=== PATIENT | male | born 1935 | race Caucasian/White ===

== ENCOUNTER 2020-10-15 17:08 | Inpatient (IN) ==
--- NOTE | 2020-10-15 17:38 | Emergency Department Note ---
History of Present Illness General Chief complaint: Weakness Time Seen by Provider: 10/15/20 17:18 Source: patient and EMS History of Present Illness Provider complaint: Weakness Onset (ago): day(s) Location: head Pain Consistency: + constant Quality: + other (Weakness) Exacerbated By: + none Associated symptoms: no chest pain, no cough, no fever/chills, no headaches, no nausea/vomiting or no shortness of breath This is an 84-year-old male who recently had a stroke on the of this month at [facility] for evaluation for hypotension and generalized weakness. His blood pressure was 89 systolic today. His family felt that he was declining and wanted him evaluated. They thought his aphasia may be worse. He denies any complaints at this time. He states he feels fine. He has no headache, chest pain, shortness of breath, fever, cough or cold symptoms, abdominal pain, diarrhea, vomiting, black or bloody stools or complaint of weakness. 1903: I did speak to the who is at the bedside as well as the patient's son over the telephone. They gave me further history regarding why the patient is here. Apparently the patient suffered a stroke on October 01. He had aphasia and confusion at that time. He was transferred to [facility] where he had an MRI showing MCA lesions. He had a negative echocardiogram and was placed on aspirin. He was discharged home and doing well until about a week ago when he developed confusion and hypotension. He did not have any hypotension today. He was taken back to [facility] where they determined that the patient had a UTI. He was placed on antibiotics and he had significant improvement of his mental state. Today the patient's son was visiting him and felt that the patient was much more confused. He had difficulty communicating what he wanted and could not count to 5. He had difficulty with word finding. He was sent here for further evaluation. Home Medications Medication Instructions Recorded Confirmed Type aspirin 81 mg chewable tablet 81 mg PO DAILY 10/15/20 10/15/20 History atorvastatin 80 mg tablet 80 mg PO HS 10/15/20 10/15/20 History docusate sodium 100 mg capsule 100 mg PO BID 10/15/20 10/15/20 History enoxaparin 30 mg/0.3 mL 30 mg SUBCUT Q12H 10/15/20 10/15/20 History subcutaneous syringe finasteride 5 mg tablet 5 mg PO DAILY 10/15/20 10/15/20 History furosemide 20 mg tablet 20 mg PO 4XWK 10/15/20 10/15/20 History insulin regular human 100 unit/mL 1 sliding scale dose SUBCUT ACHS 10/15/20 10/15/20 History injection solution (Humulin R Regular U-100 Insulin) levofloxacin 500 mg tablet 500 mg PO DAILY 10/15/20 10/15/20 History lisinopril 10 mg tablet 10 mg PO DAILY 10/15/20 10/15/20 History metformin 1,000 mg tablet 1,000 mg PO BIDM 10/15/20 10/15/20 History oxybutynin chloride 5 mg tablet 5 mg PO DAILY 10/15/20 10/15/20 History terazosin 10 mg capsule 10 mg PO HS 10/15/20 10/15/20 History Allergies Allergy/AdvReac Type Severity Reaction Status Date / Time No Known Allergies Allergy Verified 10/15/20 18:08 Past Med/Surg History Medical History CVA (cerebral vascular accident) Dementia Hypertension Social History Smoking Status: Never smoker Feels Safe at Home: Yes Review of Systems See HPI for pertinent positives & negatives. and A total of 10 systems reviewed and were otherwise negative Physical Exam Vital Signs Vital Signs - 24 hr 10/15/20 17:12 10/15/20 17:23 10/15/20 18:21 Temperature 36.7 C Temperature Source Oral Pulse Rate - Lying 96 H Pulse Rate - Sitting 92 H Pulse Rate - Standing 90 Pulse Rate 86 93 H Pulse Rate from SpO2 Sensor 86 Pulse Rhythm Regular Pulse Strength Normal Respiratory Rate 22 17 Respiratory Effort / Characteristics Non-Labored Spontaneous Respiratory Depth Normal Respiratory Pattern Regular Blood Pressure - Lying 141/76 H Blood Pressure - Sitting 140/70 Blood Pressure- Standing 135/69 Blood Pressure 141/76 H 141/76 H Blood Pressure Mean 97 97 Blood Pressure Position Sitting Pulse Oximetry 95 95 Oxygen Delivery Method Room Air Sepsis Recent Fever Within 48 Hours No Sepsis New/Unexplained Change in Mental Status No Sepsis Action Taken by Nursing No Action Required 10/15/20 18:22 10/15/20 19:23 10/15/20 19:50 Temperature Temperature Source Pulse Rate - Lying Pulse Rate - Sitting Pulse Rate - Standing Pulse Rate 93 H 84 Pulse Rate from SpO2 Sensor Pulse Rhythm Pulse Strength Respiratory Rate 15 26 H Respiratory Effort / Characteristics Non-Labored Spontaneous Respiratory Depth Normal Respiratory Pattern Blood Pressure - Lying Blood Pressure - Sitting Blood Pressure- Standing Blood Pressure 106/70 117/66 Blood Pressure Mean 82 83 Blood Pressure Position Pulse Oximetry Oxygen Delivery Method Room Air Sepsis Recent Fever Within 48 Hours Sepsis New/Unexplained Change in Mental Status Sepsis Action Taken by Nursing 10/15/20 20:29 10/15/20 20:59 10/15/20 22:05 Temperature Temperature Source Pulse Rate - Lying Pulse Rate - Sitting Pulse Rate - Standing Pulse Rate 85 86 Pulse Rate from SpO2 Sensor 85 86 Pulse Rhythm Pulse Strength Respiratory Rate 26 H 25 H Respiratory Effort / Characteristics Respiratory Depth Respiratory Pattern Blood Pressure - Lying Blood Pressure - Sitting Blood Pressure- Standing Blood Pressure 113/68 105/72 Blood Pressure Mean 83 83 Blood Pressure Position Pulse Oximetry 95 95 Oxygen Delivery Method Room Air Sepsis Recent Fever Within 48 Hours Sepsis New/Unexplained Change in Mental Status Sepsis Action Taken by Nursing Constitutional: Vital signs reviewed. Hypertensive. Pleasant. Eyes: Pupils are equal round reactive to light. Conjunctiva are noninjected. ENT: Pharynx is clear without erythema or exudate. Mucous membranes are dry. Neck supple without meningeal signs. Respiratory: Clear to auscultation bilaterally. Breath sounds are equal bilaterally. Cardiovascular: Regular rate and rhythm. No rubs or gallops. GI: Soft, nondistended and nontender. Bowel sounds are present. Musculoskeletal: No peripheral edema. No lower extremity tenderness. Integumentary: No cyanosis. or jaundice. Neurologic: The patient is awake and alert. Cranial nerves II-XII are intact. Motor is 5 out of 5 all extremities. Sensation is intact to light touch all extremities. Normal speech. No pronator drift. Psychiatric: Normal affect. Not anxious appearing. Course Administered Medications Discontinued Medications Gadobutrol (Gadobutrol 65ml Vial) 8 ml IV ONCE ONE Stop: 10/15/20 21:27 Last Admin: 10/15/20 21:27 Dose: 8 ml Documented by: [id number] Sodium Chloride (Nss) 500 mls @ 500 mls/hr IV .Q1H ONE Stop: 10/15/20 21:43 Last Admin: 10/15/20 22:08 Dose: 500 mls/hr Documented by: [id number] Critical Care Time Critical Care Time: Yes Total Critical Care Time: 35 I have personally spent approximately 35 minutes of critical care time in the direct management of this patient. This includes bedside care, interpretation of diagnostic studies, and testing, discussion with consultants, patient, and family members, and other required patient management activities. These minutes are in excess of all separately billable procedures. Medical Decision Making Differential Diagnosis Dehydration, metabolic derangement, orthostatic hypotension, infection, UTI, CVA Medical Records Attestation: I reviewed the patient's medical records. I did perform a limited focused review of portions of the patient's old chart on the electronic medical record. The patient has had no recent pertinent visits to this hospital. Home Medications Current Medication List: was personally reviewed by me Laboratory Data Attestation: I reviewed the patient's lab results. Result diagrams: 10/15/20 18:21 10/15/20 18:21 Lab Results 10/15/20 10/15/20 10/15/20 Range/Units 17:17 18:00 18:21 WBC 5.05 (4.8-10.8) K/uL RBC 4.31 L (4.7-6.1) M/uL Hgb 14.0 (14.0-18.0) g/dL Hct 40.0 L (42-52) % MCV 92.8 (80-100) fL MCH 32.5 (25-34) pg MCHC 35.0 (32-36) g/dL RDW Std Deviation 52.9 H (36.4-46.3) fL RDW Coeff of Bernadette 15.5 H (11.5-14.5) % Plt Count 67 L (130-400) K/uL MPV 11.4 H (7.4-10.4) fL Immature Gran % (Auto) 0.2 % Neut % (Auto) 60.0 % Lymph % (Auto) 28.1 % [place] % (Auto) 9.1 % Eos % (Auto) 2.0 % Baso % (Auto) 0.6 % Neut # (Auto) 3.03 (1.4-6.5) K/uL Lymph # (Auto) 1.42 (1.2-3.4) K/uL [place] # (Auto) 0.46 (0.11-0.59) K/uL Eos # (Auto) 0.10 (0-0.5) K/uL Baso # (Auto) 0.03 (0-0.2) K/uL Immature Gran # (Auto) 0.01 (0.00-0.02) K/uL Platelet Estimate Decreased L (Normal) APTT (21.0-31.0) Seconds PTT Ratio Sodium (136-145) mmol/L Potassium (3.5-5.1) mmol/L Chloride (98-107) mmol/L Carbon Dioxide (21-32) mmol/L Anion Gap (3-11) BUN (7-18) mg/dl Creatinine (0.6-1.4) mg/dl Est Cr Clr Drug Dosing ml/min Est GFR ( Amer) ml/min Est GFR (Non-Af Amer) ml/min BUN/Creatinine Ratio (10-20) Glucose (70-99) mg/dl POC Glucose 138 H (70-99) mg/dl Calcium (8.5-10.1) mg/dl Magnesium (1.8-2.4) mg/dl Total Bilirubin (0.2-1) mg/dl AST (15-37) U/L ALT (12-78) U/L Alkaline Phosphatase (45-117) U/L Troponin I (0-0.045) ng/ml Total Protein (6.4-8.2) gm/dl Albumin (3.4-5.0) gm/dl Globulin (2.5-4.0) gm/dl Albumin/Globulin Ratio (0.9-2) TSH (0.300-4.500) uIu/ml Urine Color Yellow Urine Appearance Clear (Clear) Urine pH 5.0 (4.5-7.5) Ur Specific [place] 1.017 (1.000-1.030) Urine Protein Negative (Negative) Urine Glucose (UA) Negative (Negative) Urine Ketones Negative (Negative) Urine Blood Negative (Negative) Urine Nitrite Negative (Negative) Urine Bilirubin Negative (Negative) Urine Urobilinogen Negative (Negative) Ur Leukocyte Esterase Trace H (Negative) Urine WBC (Auto) 1-5 (0-5) /hpf Urine RBC (Auto) 0-4 (0-4) /hpf U Hyaline Cast (Auto) 1-5 (0-5) /lpf U Epithel Cells (Auto) 5-10 H (0-5) /lpf Urine Bacteria (Auto) Negative (Negative) COVID-19 Eval Order SARS-CoV-2 (PCR) (Negative) 10/15/20 10/15/20 10/15/20 Range/Units 18:21 19:53 19:53 WBC (4.8-10.8) K/uL RBC (4.7-6.1) M/uL Hgb (14.0-18.0) g/dL Hct (42-52) % MCV (80-100) fL MCH (25-34) pg MCHC (32-36) g/dL RDW Std Deviation (36.4-46.3) fL RDW Coeff of Bernadette (11.5-14.5) % Plt Count (130-400) K/uL MPV (7.4-10.4) fL Immature Gran % (Auto) % Neut % (Auto) % Lymph % (Auto) % [place] % (Auto) % Eos % (Auto) % Baso % (Auto) % Neut # (Auto) (1.4-6.5) K/uL Lymph # (Auto) (1.2-3.4) K/uL [place] # (Auto) (0.11-0.59) K/uL Eos # (Auto) (0-0.5) K/uL Baso # (Auto) (0-0.2) K/uL Immature Gran # (Auto) (0.00-0.02) K/uL Platelet Estimate (Normal) APTT (21.0-31.0) Seconds PTT Ratio Sodium 135 L (136-145) mmol/L Potassium 4.6 (3.5-5.1) mmol/L Chloride 104 (98-107) mmol/L Carbon Dioxide 25 (21-32) mmol/L Anion Gap 6.0 (3-11) BUN 21 H (7-18) mg/dl Creatinine 1.12 (0.6-1.4) mg/dl Est Cr Clr Drug Dosing 50.0 ml/min Est GFR ( Amer) 70.0 ml/min Est GFR (Non-Af Amer) 60.4 ml/min BUN/Creatinine Ratio 19.0 (10-20) Glucose 118 H (70-99) mg/dl POC Glucose (70-99) mg/dl Calcium 8.9 (8.5-10.1) mg/dl Magnesium 1.8 (1.8-2.4) mg/dl Total Bilirubin 0.8 (0.2-1) mg/dl AST 38 H (15-37) U/L ALT 45 (12-78) U/L Alkaline Phosphatase 161 H (45-117) U/L Troponin I < 0.015 (0-0.045) ng/ml Total Protein 6.8 (6.4-8.2) gm/dl Albumin 3.0 L (3.4-5.0) gm/dl Globulin 3.8 (2.5-4.0) gm/dl Albumin/Globulin Ratio 0.8 L (0.9-2) TSH 2.960 (0.300-4.500) uIu/ml Urine Color Urine Appearance (Clear) Urine pH (4.5-7.5) Ur Specific [place] (1.000-1.030) Urine Protein (Negative) Urine Glucose (UA) (Negative) Urine Ketones (Negative) Urine Blood (Negative) Urine Nitrite (Negative) Urine Bilirubin (Negative) Urine Urobilinogen (Negative) Ur Leukocyte Esterase (Negative) Urine WBC (Auto) (0-5) /hpf Urine RBC (Auto) (0-4) /hpf U Hyaline Cast (Auto) (0-5) /lpf U Epithel Cells (Auto) (0-5) /lpf Urine Bacteria (Auto) (Negative) COVID-19 Eval Order Covid19 at [facility] SARS-CoV-2 (PCR) NEGATIVE (Negative) 10/15/20 Range/Units 21:40 WBC (4.8-10.8) K/uL RBC (4.7-6.1) M/uL Hgb (14.0-18.0) g/dL Hct (42-52) % MCV (80-100) fL MCH (25-34) pg MCHC (32-36) g/dL RDW Std Deviation (36.4-46.3) fL RDW Coeff of Bernadette (11.5-14.5) % Plt Count (130-400) K/uL MPV (7.4-10.4) fL Immature Gran % (Auto) % Neut % (Auto) % Lymph % (Auto) % [place] % (Auto) % Eos % (Auto) % Baso % (Auto) % Neut # (Auto) (1.4-6.5) K/uL Lymph # (Auto) (1.2-3.4) K/uL [place] # (Auto) (0.11-0.59) K/uL Eos # (Auto) (0-0.5) K/uL Baso # (Auto) (0-0.2) K/uL Immature Gran # (Auto) (0.00-0.02) K/uL Platelet Estimate (Normal) APTT 31.9 H (21.0-31.0) Seconds PTT Ratio 1.2 Sodium (136-145) mmol/L Potassium (3.5-5.1) mmol/L Chloride (98-107) mmol/L Carbon Dioxide (21-32) mmol/L Anion Gap (3-11) BUN (7-18) mg/dl Creatinine (0.6-1.4) mg/dl Est Cr Clr Drug Dosing ml/min Est GFR ( Amer) ml/min Est GFR (Non-Af Amer) ml/min BUN/Creatinine Ratio (10-20) Glucose (70-99) mg/dl POC Glucose (70-99) mg/dl Calcium (8.5-10.1) mg/dl Magnesium (1.8-2.4) mg/dl Total Bilirubin (0.2-1) mg/dl AST (15-37) U/L ALT (12-78) U/L Alkaline Phosphatase (45-117) U/L Troponin I (0-0.045) ng/ml Total Protein (6.4-8.2) gm/dl Albumin (3.4-5.0) gm/dl Globulin (2.5-4.0) gm/dl Albumin/Globulin Ratio (0.9-2) TSH (0.300-4.500) uIu/ml Urine Color Urine Appearance (Clear) Urine pH (4.5-7.5) Ur Specific [place] (1.000-1.030) Urine Protein (Negative) Urine Glucose (UA) (Negative) Urine Ketones (Negative) Urine Blood (Negative) Urine Nitrite (Negative) Urine Bilirubin (Negative) Urine Urobilinogen (Negative) Ur Leukocyte Esterase (Negative) Urine WBC (Auto) (0-5) /hpf Urine RBC (Auto) (0-4) /hpf U Hyaline Cast (Auto) (0-5) /lpf U Epithel Cells (Auto) (0-5) /lpf Urine Bacteria (Auto) (Negative) COVID-19 Eval Order SARS-CoV-2 (PCR) (Negative) Imaging Data Radiologist's Impression: Chest X-Ray 10/15/20 17:33 SINGLE VIEW CHEST CLINICAL HISTORY: Generalized weakness. FINDINGS: An AP, portable, upright chest radiograph is obtained. No prior studies are available for comparison at the time of dictation. The examination is degraded by portable technique and patient rotation. The heart is top normal for projection noting atherosclerotic calcification of the thoracic aorta. The pulmonary vasculature is noncongested. There is bibasilar scarring/atelectasis. No airspace consolidation or large pleural effusion is identified. No pneumothorax is seen. The skeletal structures are osteopenic. The bony thorax is grossly intact. Degenerative changes noted in the shoulders and thoracic spine. There is widening at the right AC joint. IMPRESSION: No acute cardiopulmonary abnormality. ACT 112: Negative or not required by law. Electronically signed by: Artis Lugo M.D. 10/15/2020 6:[address] 10/15/20 17:33 CT SCAN OF THE BRAIN WITHOUT IV CONTRAST CLINICAL HISTORY: Change in mental status. COMPARISON STUDY: No priors. TECHNIQUE: Unenhanced axial CT scan of the brain is performed from the vertex to the skull base. A dose lowering technique was utilized adhering to the principles of ALARA. CT DOSE: 614.27 mGy.cm FINDINGS: Brain parenchyma: There are age-related involutional changes noting mild to moderate subcortical and periventricular microangiopathic change. There is no hemorrhage, mass effect, or evidence of acute territorial ischemia by CT criteria. There is a chronic lacunar infarct in the left samuels radiata. Hilliard- white matter differentiation is preserved. No extra-axial fluid collection is seen. Ventricles, sulci, cisterns: Prominent secondary to involutional change. Intracranial vasculature: There is atherosclerotic calcification of the cavernous carotid and vertebral arteries. Calvarium: Unremarkable. Sinuses and mastoids: There is a 1.5 cm retention cyst in the left maxillary antrum. The remaining paranasal sinuses are clear. There is a small right mastoid effusion. The left mastoid air cells are well pneumatized. Orbits: The bony orbits are grossly intact. IMPRESSION: There is no hemorrhage, mass effect, or evidence of acute territorial ischemia by CT criteria. ACT 112: Negative or not required by law. Electronically signed by: Artis Lugo M.D. 10/15/2020 7:15 PM Brain MRI 10/15/20 19:29 MRI OF THE BRAIN COMBO CLINICAL HISTORY: Aphasia. Change in mental status. COMPARISON STUDY: CT of the brain dated 10/15/2020. TECHNIQUE: MRI of the brain was performed utilizing various T1 and T2-weighted sequences in the axial, sagittal, and coronal planes. Contrast-enhanced sequences were acquired following the administration of 8 cc of Gadavist. FINDINGS: Brain parenchyma: There is age-related involutional change noting moderate subcortical and periventricular microangiopathic disease. There is no hemorrhage or mass effect. Chronic lacunar infarcts are identified in the olivia and the left samuels radiata. There is a 1.4 cm focus of restricted diffusion identified in the left posterior periventricular white matter adjacent the occipital horn of the lateral ventricle. Additional punctate focus of restricted diffusion is suggested in the right occipital cortex on image #13. These are consistent with foci of acute to subacute ischemia. No additional foci of restricted diffusion are identified. No enhancing mass lesion is identified on the postcontrast images. No extra-axial fluid collection is seen. The cerebellar tonsils are normal in configuration. Ventricles, sulci, and cisterns: Prominent secondary to involutional change. Pituitary and sella: Partially empty sella is incidentally noted. Intracranial vasculature: Normal flow voids are maintained at the skull base. Orbits: The bony orbits are grossly intact. Orbital contents are normal in appearance. Sinuses and mastoids: A 1.6 cm retention cyst is noted in the left maxillary antrum. The remaining paranasal sinuses are clear. There is a right mastoid effusion. Calvarium: Unremarkable. Cervical cord: Partially visualized cervical spinal cord is normal in morphology and signal intensity. IMPRESSION: 1. There is an acute to subacute lacunar infarct identified in the left posterior periventricular white matter as above. 2. An additional punctate focus of acute to subacute ischemia is suspect in the right occipital cortex. Bilateral infarcts suggest an embolic process. 3. No additional foci of acute ischemia are identified. 4. There is no hemorrhage, mass effect, or enhancing lesion identified. ACT 112: Negative or not required by law. Electronically signed by: Artis Lugo M.D. 10/15/2020 9:56 PM ECG Data Indication: + other (Low blood pressure) Rate (beats per minute): 87 Rhythm: + normal sinus ECG Intervals/blocks: + First degree AV block ECG ST segments: no ST elevation ECG Findings: no PVCs Comparison ECG Date: no prior available MDM Narrative I did evaluate the patient as noted above. I did obtain history from the patient as well as the nurse initially. I later obtain history from the patient's son over the phone as well as his who is at the bedside. Apparently the patient had a stroke on the with confusion and aphasia. He recovered and was discharged home after which she developed confusion and hypotension several days later. He was seen again in placed on an antibiotic for a UTI. He was sent to [facility] and today his son noticed that he was more confused and had trouble finding words. He could not count to 5. His stated that he seemed confused last night as well. I was concerned about the possibility of recurrent stroke. He is on aspirin. He had a negative KOBI at [facility]. I did try to obtain records from them. He is not an IV TPA candidate given his symptoms started last night. Initially the patient seemed mostly coherent but as he stayed longer in the emergency department he had trouble finding words and naming objects. He seemed more confused as the night went on as well. IV access was established. I did place an order for continuous cardiac monitoring. The monitor showed normal sinus rhythm at a rate of 90 bpm. I did order and personally review the patient's 12-lead EKG as described above. He has no acute ischemic changes. I did order and personally reviewed the images of the patient's chest x-ray as described above. He does not have a pneumonia. I did order a urine analysis. There is no evidence of UTI. I did order and review the patient's blood work as noted in the electronic medical record. His white blood cell count is not elevated. Hemoglobin is 14. Platelet count is 67. His states that he has had thrombocytopenia for year s. Electrolytes demonstrate a sodium 135 but are otherwise unremarkable. Troponin is negative. I did order a CT of the head. I did review the images myself as well as the radiology report as described above. There is no evidence of acute intracranial abnormality. Because of the persistent symptoms the patient is having with aphasia and confusion and his prior history of recent stroke I did recommend MRI of the brain and hospitalization for further care and evaluation. They were agreeable. I did order an MRI. I did discuss case with the hospitalist and ed case manager. The MRI did demonstrate acute to subacute lacunar infarct identified in the left posterior periventricular white matter. Additional punctate focus of acute to subacute ischemia is suspected in the right occipital cortex. Impression & Plan Expressive aphasia, Acute confusion, Thrombocytopenia, Acute cerebrovascular accident (CVA) Discharge Plan Visit Data Chief Complaint: Weakness ED Provider: Wild Delatorre Discharge Problem: Expressive aphasia, Acute confusion, Thrombocytopenia, Acute cerebrovascular accident (CVA) Patient Disposition: Being Evaluated by Hospitalist Forms Stand Alone Forms: My [facility] Prescriptions Prescriptions: No Action atorvastatin 80 mg Tablet 80 mg PO HS RF: 0 metformin 1,000 mg Tablet 1,000 mg PO BIDM RF: 0 lisinopril 10 mg Tablet 10 mg PO DAILY RF: 0 aspirin [Aspirin Child] 81 mg Tablet,Chewable 81 mg PO DAILY RF: 0 docusate sodium 100 mg Capsule 100 mg PO BID RF: 0 oxybutynin chloride 5 mg Tablet 5 mg PO DAILY RF: 0 terazosin 10 mg Capsule 10 mg PO HS RF: 0 finasteride 5 mg Tablet 5 mg PO DAILY RF: 0 enoxaparin 30 mg/0.3 mL Syringe 30 mg SUBCUT Q12H RF: 0 furosemide 20 mg Tablet 20 mg PO [id number] RF: 0 levofloxacin 500 mg Tablet 500 mg PO DAILY RF: 0 Humulin R Regular U-100 Insuln 100 unit/mL Solution 1 sliding scale dose SUBCUT ACHS RF: 0 Referrals Referrals: Houston Mcwilliams M.D. [Primary Care Provider] -
[2020-10-15 18:29] LABS: Appearance Urine Clear (Clear); Bacteria Urine Automated Negative (Negative); Bilirubin Urine Negative (Negative); Blood Urine Negative (Negative); Color Urine Yellow; Glucose Urine UA Negative (Negative); Ketones Urine Negative (Negative); Leukocyte Esterase Urine Trace (Negative); Nitrite Urine Negative (Negative); Protein Urine Negative (Negative); RBC Urine Automated 0-4 /hpf (0-4); Specific Gravity Urine 1.017 (1.000-1.030); Urobilinogen Urine Negative (Negative)
--- NOTE | 2020-10-15 18:43 | XRay Report ---
SINGLE VIEW CHEST CLINICAL HISTORY: Generalized weakness. FINDINGS: An AP, portable, upright chest radiograph is obtained. No prior studies are available for c omparison at the time of dictation. The examination is degraded by portable technique and patient rot ation. The heart is top normal for projection noting atherosclerotic calcification of the thoracic a buster. The pulmonary vasculature is noncongested. There is bibasilar scarring/atelectasis. No airspace consolidation or large pleural effusion is identified. No pneumothorax is seen. The skeletal structu res are osteopenic. The bony thorax is grossly intact. Degenerative changes noted in the shoulders an d thoracic spine. There is widening at the right AC joint. IMPRESSION: No acute cardiopulmonary abnormality. ACT 112: Negative or not required by law. Electronically signed by: Artis Lugo M.D. 10/15/2020 6:42 PM
[2020-10-15 18:56] LABS: Alanine Aminotransferase 45 U/L (12-78); Aspartate Aminotransferase 38 U/L (15-37); Blood Urea Nitrogen 21 mg/dl (7-18); Calcium 8.9 mg/dl (8.5-10.1); Carbon Dioxide 25 mmol/L (21-32); Chloride 104 mmol/L (98-107); Est GFR (Non-African American) 60.4 ml/min; Glucose 118 mg/dl (70-99); Potassium 4.6 mmol/L (3.5-5.1); Sodium 135 mmol/L (136-145)
[2020-10-15 19:00] LABS: Basophils # (auto) 0.03 K/uL (0-0.2); Basophils % (auto) 0.6 %; Immature Granulocytes # (auto) 0.01 K/uL (0.00-0.02); Immature Granulocytes % (auto) 0.2 %; Lymphocytes # (auto) 1.42 K/uL (1.2-3.4); Lymphocytes % (auto) 28.1 %; Mean Corpuscular Hemoglobin 32.5 pg (25-34); Mean Corpuscular Volume 92.8 fL (80-100); Mean Platelet Volume 11.4 fL (7.4-10.4); Monocytes # (auto) 0.46 K/uL (0.11-0.59); Monocytes % (auto) 9.1 %; Neutrophils # (auto) 3.03 K/uL (1.4-6.5); Platelet Count 67 K/uL (130-400); Platelet Estimate Decreased (Normal); RDW Coefficient of Variation 15.5 % (11.5-14.5); RDW Standard Deviation 52.9 fL (36.4-46.3); Red Blood Count 4.31 M/uL (4.7-6.1); White Blood Count 5.05 K/uL (4.8-10.8)
[2020-10-15 19:07] LABS: Albumin Globulin Ratio 0.8 (0.9-2); Alkaline Phosphatase 161 U/L (45-117); Bilirubin,Total 0.8 mg/dl (0.2-1); Globulin 3.8 gm/dl (2.5-4.0); Total Protein 6.8 gm/dl (6.4-8.2); Troponin I < 0.015 ng/ml (0-0.045)
--- NOTE | 2020-10-15 19:16 | CT Scan Report ---
CT SCAN OF THE BRAIN WITHOUT IV CONTRAST CLINICAL HISTORY: Change in mental status. COMPARISON STUDY: No priors. TECHNIQUE: Unenhanced axial CT scan of the brain is performed from the vertex to the skull base. A do se lowering technique was utilized adhering to the principles of ALARA. CT DOSE: 614.27 mGy.cm FINDINGS: Brain parenchyma: There are age-related involutional changes noting mild to moderate subcortical and periventricular microangiopathic change. There is no hemorrhage, mass effect, or evidence of acute t erritorial ischemia by CT criteria. There is a chronic lacunar infarct in the left samuels radiata. Gr ay-white matter differentiation is preserved. No extra-axial fluid collection is seen. Ventricles, sulci, cisterns: Prominent secondary to involutional change. Intracranial vasculature: There is atherosclerotic calcification of the cavernous carotid and vertebr al arteries. Calvarium: Unremarkable. Sinuses and mastoids: There is a 1.5 cm retention cyst in the left maxillary antrum. The remaining pa ranasal sinuses are clear. There is a small right mastoid effusion. The left mastoid air cells are we ll pneumatized. Orbits: The bony orbits are grossly intact. IMPRESSION: There is no hemorrhage, mass effect, or evidence of acute territorial ischemia by CT bryce quiñones. ACT 112: Negative or not required by law. Electronically signed by: Artis Lugo M.D. 10/15/2020 7:15 PM
[2020-10-15] MEDS ORDERED: SODIUM CHLORIDE 0.9% 500 ML IV ONE (20:44)
[2020-10-15 20:46] LABS: Magnesium 1.8 mg/dl (1.8-2.4)
[2020-10-15] MEDS ORDERED: GADOBUTROL 65ML VIAL IV ONE (21:26)
--- NOTE | 2020-10-15 21:57 | Magnetic Resonance Report ---
MRI OF THE BRAIN COMBO CLINICAL HISTORY: Aphasia. Change in mental status. COMPARISON STUDY: CT of the brain dated 10/15/2020. TECHNIQUE: MRI of the brain was performed utilizing various T1 and T2-weighted sequences in the axial , sagittal, and coronal planes. Contrast-enhanced sequences were acquired following the administratio n of 8 cc of Gadavist. FINDINGS: Brain parenchyma: There is age-related involutional change noting moderate subcortical and periventri cular microangiopathic disease. There is no hemorrhage or mass effect. Chronic lacunar infarcts are i dentified in the olivia and the left samuels radiata. There is a 1.4 cm focus of restricted diffusion id entified in the left posterior periventricular white matter adjacent the occipital horn of the latera l ventricle. Additional punctate focus of restricted diffusion is suggested in the right occipital co rtex on image #13. These are consistent with foci of acute to subacute ischemia. No additional foci o f restricted diffusion are identified. No enhancing mass lesion is identified on the postcontrast zainab ges. No extra-axial fluid collection is seen. The cerebellar tonsils are normal in configuration. Ventricles, sulci, and cisterns: Prominent secondary to involutional change. Pituitary and sella: Partially empty sella is incidentally noted. Intracranial vasculature: Normal flow voids are maintained at the skull base. Orbits: The bony orbits are grossly intact. Orbital contents are normal in appearance. Sinuses and mastoids: A 1.6 cm retention cyst is noted in the left maxillary antrum. The remaining pa ranasal sinuses are clear. There is a right mastoid effusion. Calvarium: Unremarkable. Cervical cord: Partially visualized cervical spinal cord is normal in morphology and signal intensity . IMPRESSION: 1. There is an acute to subacute lacunar infarct identified in the left posterior periventricular whi te matter as above. 2. An additional punctate focus of acute to subacute ischemia is suspect in the right occipital marissa x. Bilateral infarcts suggest an embolic process. 3. No additional foci of acute ischemia are identified. 4. There is no hemorrhage, mass effect, or enhancing lesion identified. ACT 112: Negative or not required by law. Electronically signed by: Artis Lugo M.D. 10/15/2020 9:56 PM
[2020-10-15 22:10] LABS: Partial Thromboplastin Ratio 1.2; Partial Thromboplastin Time 31.9 Seconds (21.0-31.0)
--- NOTE | 2020-10-15 22:45 | History & Physical Report ---
Date of Service October 15, 2020 Assessment & Plan (1) Recurrent cerebrovascular accidents (CVAs): Plan: Recurrent embolic CVA Rule out predisposing arrhythmia hypertension, BP on the lower side DM2 on oral medications, well-controlled as of recent hemoglobin A1c of 5.21 May 2020 cirrhosis as per records, no overt decompensation Complicated UTI status post antibiotic Rx, hx BPH currently with indwelling Alvares catheter chronic thrombocytopenia Medical telemetry Neurochecks May eventually need anticoagulation IVF to optimize cerebral perfusion given borderline BP Appropriate to hold BP medications for now given borderline BP Neurology consult Re: Recurrent embolic CVA ISS BG goal 1 10-1 40, carb count coverage, update hemoglobin A1c DVT prophylaxis SCDs Re: Thrombocytopenia Full code Patient son requesting updates from providers. Mr. Scott Meade, contact #[phone]. Text document was generated using [employer] voice recognition software. It may contain grammatical or spelling errors. Kindly contact undersigned for clarification of any documentation item in question. History of Present Illness Chief Complaint: Increased confusion as per records Primary Care Provider: Dr. Troy History obtained from patient's family and records. Unable to obtain history from patient secondary to aphasia Medical history significant for recent embolic CVA, hypertension, DM2 on oral medications, cirrhosis as per records, BPH, chronic thrombocytopenia. 09/28-10/01 Patient admitted at [facility] for abdominal pain, possible gallstone problem as per son. Possible cirrhosis and portal hypertension on CAT scan. Patient discharged on Propanolol. 10/02-10/05 Patient developed aphasia and confusion at home. Transferred to [facility] from [facility] for stroke diagnosis. MRI brain showed acute left MCA territory infarct. Chronic white matter infarct in the left coronary radiata, chronic parenchymal volume loss and microvascular ischemic changes. Abnormal awake and drowsy EEG due to mild to moderate generalized slowing suggesting diffuse cervical dysfunction nonspecific to etiology. CTA head/neck No high-grade intracranial arterial vessels stenosis/occlusion within limitations. The great vessel origins are not included in the exam. Mild narrowing of right cervical ICA origin due to atherosclerotic disease. No significant narrowing of left cervical ICA. The origin of the vertebral arteries are difficult to visualize with both patent in appearance of the V2, V3, and V4 segment of vertebral arteries bilaterally. Multiple thyroid nodules. KOBI EF 55 to 60%, mild aortic valve regurgitation/mild MR/mild TR/mild TR. No cardiac source of embolus. 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 No A. fib or flutter on telemetry monitoring as per documentation. Patient discharged home on aspirin and outpatient Holter monitor recommendations. 10/07-10/13 Patient be admitted at [facility] for encephalopathy attributed to UTI secondary to BPH with urinary retention. Enterococcus on urine CS. Patient discharged on Levaquin course along with indwelling Alvares catheter to rehab facility. Urology follow-up recommended after 1 week as per documentation for spontaneous voiding trial. 10/13 Patient admitted at [facility] rehab facility [facility]. Patient son (a hospital physical therapist) noted father to be more aphasic today. Family requested [facility] evaluation. Medical History as above Surgical History : Knee surgery, nerve biopsy, skin cancer surgery, shoulder surgery Family History : Dementia, lung cancer, prostate cancer, heart disease Personal/Social history : Non-smoker, occasional EtOH intake, retired grinding and polishing laborer, lives with Allergies Allergy/AdvReac Type Severity Reaction Status Date / Time No Known Allergies Allergy Verified 10/15/20 18:08 Home Medications Medication Instructions Recorded Confirmed Type aspirin 81 mg chewable tablet 81 mg PO DAILY 10/15/20 10/15/20 History atorvastatin 80 mg tablet 80 mg PO HS 10/15/20 10/15/20 History docusate sodium 100 mg capsule 100 mg PO BID 10/15/20 10/15/20 History enoxaparin 30 mg/0.3 mL 30 mg SUBCUT Q12H 10/15/20 10/15/20 History subcutaneous syringe finasteride 5 mg tablet 5 mg PO DAILY 10/15/20 10/15/20 History furosemide 20 mg tablet 20 mg PO 4XWK 10/15/20 10/15/20 History insulin regular human 100 unit/mL 1 sliding scale dose SUBCUT ACHS 10/15/20 10/15/20 History injection solution (Humulin R Regular U-100 Insulin) levofloxacin 500 mg tablet 500 mg PO DAILY 10/15/20 10/15/20 History lisinopril 10 mg tablet 10 mg PO DAILY 10/15/20 10/15/20 History metformin 1,000 mg tablet 1,000 mg PO BIDM 10/15/20 10/15/20 History oxybutynin chloride 5 mg tablet 5 mg PO DAILY 10/15/20 10/15/20 History terazosin 10 mg capsule 10 mg PO HS 10/15/20 10/15/20 History Past Med/Surg History Medical History CVA (cerebral vascular accident) Dementia Hypertension Social History Smoking Status: Never smoker Hx Substance Use: No Communication Ability: Impaired Manager Entry Required: No Beliefs That Will Affect Care: None marital status: Current Living Situation: Personal Care Facility Other Information That Helps Us Care for You: No Feels Safe at Home: Yes Safety Concerns: Feels Safe At This Time Assistive Devices: Hearing Aid - Bilateral Assistive Devices Comment: hearing aids at home with Review of Systems Review of Systems: Could not be reliably obtained Physical Exam Physical Exam: GENERAL: Comfortable, pleasant, aphasic, no respiratory distress SKIN: Normal color, warm HEENT: [place] palpebral conjunctivae, no ptosis, moist buccal mucosa NECK : Supple, no tenderness CHEST : CTA, no tenderness HEART : RRR, no obvious murmurs ABDOMEN: Some distention, nontender EXTREMITIES : No LE swelling/tenderness, no other conspicuous deformities noted NEUROLOGIC : Coherent, aphasic, no facial asymmetry, no other gross focality Results & Data Results & Data ([facility]) Vital Signs (Past 12 Hours) Vital Signs Temp Pulse Resp BP Pulse Ox 10/15/20 22:05 86 25 H 105/72 95 10/15/20 20:29 85 26 H 113/68 95 10/15/20 19:50 84 26 H 117/66 10/15/20 18:22 93 H 15 106/70 10/15/20 17:23 36.7 C 93 H 17 141/76 H 95 10/15/20 17:12 86 22 141/76 H 95 Laboratory Results Laboratory Results WBC 5.05 K/uL (4.8-10.8) 10/15/20 18:21 RBC 4.31 M/uL (4.7-6.1) L 10/15/20 18:21 Hgb 14.0 g/dL (14.0-18.0) 10/15/20 18:21 Hct 40.0 % (42-52) L 10/15/20 18:21 MCV 92.8 fL (80-100) 10/15/20 18:21 MCH 32.5 pg (25-34) 10/15/20 18:21 MCHC 35.0 g/dL (32-36) 10/15/20 18:21 RDW Std Deviation 52.9 fL (36.4-46.3) H 10/15/20 18:21 RDW Coeff of Bernadette 15.5 % (11.5-14.5) H 10/15/20 18:21 Plt Count 67 K/uL (130-400) L 10/15/20 18:21 MPV 11.4 fL (7.4-10.4) H 10/15/20 18:21 Immature Gran % (Auto) 0.2 % 10/15/20 18: Neut % (Auto) 60.0 % 10/15/20 18:21 Lymph % (Auto) 28.1 % 10/15/20 18:21 Guthrie % (Auto) 9.1 % 10/15/20 18:21 Eos % (Auto) 2.0 % 10/15/20 18:21 Baso % (Auto) 0.6 % 10/15/20 18:21 Neut # (Auto) 3.03 K/uL (1.4-6.5) 10/15/20 18:21 Lymph # (Auto) 1.42 K/uL (1.2-3.4) 10/15/20 18:21 Guthrie # (Auto) 0.46 K/uL (0.11-0.59) 10/15/20 18:21 Eos # (Auto) 0.10 K/uL (0-0.5) 10/15/20 18:21 Baso # (Auto) 0.03 K/uL (0-0.2) 10/15/20 18: Immature Gran # (Auto) 0.01 K/uL (0.00-0.02) 10/15/20 18: Platelet Estimate Decreased (Normal) L 10/15/20 18:21 APTT 31.9 Seconds (21.0-31.0) H 10/15/20 21:40 PTT Ratio 1.2 10/15/20 21:40 Sodium 135 mmol/L (136-145) L 10/15/20 18:21 Potassium 4.6 mmol/L (3.5-5.1) 10/15/20 18:21 Chloride 104 mmol/L (98-107) 10/15/20 18:21 Carbon Dioxide 25 mmol/L (21-32) 10/15/20 18:21 Anion Gap 6.0 (3-11) 10/15/20 18:21 BUN 21 mg/dl (7-18) H 10/15/20 18:21 Creatinine 1.12 mg/dl (0.6-1.4) 10/15/20 18:21 Est Cr Clr Drug Dosing 50.0 ml/min 10/15/20 18:21 Est GFR ( Amer) 70.0 ml/min 10/15/20 18:21 Est GFR (Non-Af Amer) 60.4 ml/min 10/15/20 18:21 BUN/Creatinine Ratio 19.0 (10-20) 10/15/20 18:21 Glucose 118 mg/dl (70-99) H 10/15/20 18:21 POC Glucose 138 mg/dl (70-99) H 10/15/20 17:17 Calcium 8.9 mg/dl (8.5-10.1) 10/15/20 18:21 Magnesium 1.8 mg/dl (1.8-2.4) 10/15/20 18:21 Total Bilirubin 0.8 mg/dl (0.2-1) 10/15/20 18:21 AST 38 U/L (15-37) H 10/15/20 18:21 ALT 45 U/L (12-78) 10/15/20 18:21 Alkaline Phosphatase 161 U/L (45-117) H 10/15/20 18:21 Troponin I < 0.015 ng/ml (0-0.045) 10/15/20 18:21 Total Protein 6.8 gm/dl (6.4-8.2) 10/15/20 18:21 Albumin 3.0 gm/dl (3.4-5.0) L 10/15/20 18:21 Globulin 3.8 gm/dl (2.5-4.0) 10/15/20 18:21 Albumin/Globulin Ratio 0.8 (0.9-2) L 10/15/20 18:21 TSH 2.960 uIu/ml (0.300-4.500) 10/15/20 18:21 Urine Color Yellow 10/15/20 18:00 Urine Appearance Clear (Clear) 10/15/20 18:00 Urine pH 5.0 (4.5-7.5) 10/15/20 18:00 Ur Specific [place] 1.017 (1.000-1.030) 10/15/20 18:00 Urine Protein Negative (Negative) 10/15/20 18:00 Urine Glucose (UA) Negative (Negative) 10/15/20 18:00 Urine Ketones Negative (Negative) 10/15/20 18:00 Urine Blood Negative (Negative) 10/15/20 18:00 Urine Nitrite Negative (Negative) 10/15/20 18:00 Urine Bilirubin Negative (Negative) 10/15/20 18:00 Urine Urobilinogen Negative (Negative) 10/15/20 18:00 Ur Leukocyte Esterase Trace (Negative) H 10/15/20 18:00 Urine WBC (Auto) 1-5 /hpf (0-5) 10/15/20 18:00 Urine RBC (Auto) 0-4 /hpf (0-4) 10/15/20 18:00 U Hyaline Cast (Auto) 1-5 /lpf (0-5) 10/15/20 18:00 U Epithel Cells (Auto) 5-10 /lpf (0-5) H 10/15/20 18:00 Urine Bacteria (Auto) Negative (Negative) 10/15/20 18:00 COVID-19 Eval Order Covid19 at [facility] 10/15/20 19:53 SARS-CoV-2 (PCR) NEGATIVE (Negative) 10/15/20 19:53 Impressions Chest X-Ray 10/15/20 17:33 SINGLE VIEW CHEST CLINICAL HISTORY: Generalized weakness. FINDINGS: An AP, portable, upright chest radiograph is obtained. No prior studies are available for comparison at the time of dictation. The examination is degraded by portable technique and patient rotation. The heart is top normal for projection noting atherosclerotic calcification of the thoracic aorta. The pulmonary vasculature is noncongested. There is bibasilar scarring/atelectasis. No airspace consolidation or large pleural effusion is identified. No pneumothorax is seen. The skeletal structures are osteopenic. The bony thorax is grossly intact. Degenerative changes noted in the shoulders and thoracic spine. There is widening at the right AC joint. IMPRESSION: No acute cardiopulmonary abnormality. ACT 112: Negative or not required by law. Electronically signed by: Artis Lugo M.D. 10/15/2020 6:[address] 10/15/20 17:33 CT SCAN OF THE BRAIN WITHOUT IV CONTRAST CLINICAL HISTORY: Change in mental status. COMPARISON STUDY: No priors. TECHNIQUE: Unenhanced axial CT scan of the brain is performed from the vertex to the skull base. A dose lowering technique was utilized adhering to the principles of ALARA. CT DOSE: 614.27 mGy.cm FINDINGS: Brain parenchyma: There are age-related involutional changes noting mild to moderate subcortical and periventricular microangiopathic change. There is no hemorrhage, mass effect, or evidence of acute territorial ischemia by CT criteria. There is a chronic lacunar infarct in the left samuels radiata. Hilliard- white matter differentiation is preserved. No extra-axial fluid collection is seen. Ventricles, sulci, cisterns: Prominent secondary to involutional change. Intracranial vasculature: There is atherosclerotic calcification of the cavernous carotid and vertebral arteries. Calvarium: Unremarkable. Sinuses and mastoids: There is a 1.5 cm retention cyst in the left maxillary antrum. The remaining paranasal sinuses are clear. There is a small right mastoid effusion. The left mastoid air cells are well pneumatized. Orbits: The bony orbits are grossly intact. IMPRESSION: There is no hemorrhage, mass effect, or evidence of acute territorial ischemia by CT criteria. ACT 112: Negative or not required by law. Electronically signed by: Artis Lugo M.D. 10/15/2020 7:15 PM Brain MRI 10/15/20 19:29 MRI OF THE BRAIN COMBO CLINICAL HISTORY: Aphasia. Change in mental status. COMPARISON STUDY: CT of the brain dated 10/15/2020. TECHNIQUE: MRI of the brain was performed utilizing various T1 and T2-weighted sequences in the axial, sagittal, and coronal planes. Contrast-enhanced sequences were acquired following the administration of 8 cc of Gadavist. FINDINGS: Brain parenchyma: There is age-related involutional change noting moderate subcortical and periventricular microangiopathic disease. There is no hemorrhage or mass effect. Chronic lacunar infarcts are identified in the olivia and the left samuels radiata. There is a 1.4 cm focus of restricted diffusion identified in the left posterior periventricular white matter adjacent the occipital horn of the lateral ventricle. Additional punctate focus of restricted diffusion is suggested in the right occipital cortex on image #13. These are consistent with foci of acute to subacute ischemia. No additional foci of restricted diffusion are identified. No enhancing mass lesion is identified on the postcontrast images. No extra-axial fluid collection is seen. The cerebellar tonsils are normal in configuration. Ventricles, sulci, and cisterns: Prominent secondary to involutional change. Pituitary and sella: Partially empty sella is incidentally noted. Intracranial vasculature: Normal flow voids are maintained at the skull base. Orbits: The bony orbits are grossly intact. Orbital contents are normal in appearance. Sinuses and mastoids: A 1.6 cm retention cyst is noted in the left maxillary antrum. The remaining paranasal sinuses are clear. There is a right mastoid effusion. Calvarium: Unremarkable. Cervical cord: Partially visualized cervical spinal cord is normal in morphology and signal intensity. IMPRESSION: 1. There is an acute to subacute lacunar infarct identified in the left posterior periventricular white matter as above. 2. An additional punctate focus of acute to subacute ischemia is suspect in the right occipital cortex. Bilateral infarcts suggest an embolic process. 3. No additional foci of acute ischemia are identified. 4. There is no hemorrhage, mass effect, or enhancing lesion identified. ACT 112: Negative or not required by law. Electronically signed by: Artis Lugo M.D. 10/15/2020 9:56 PM Diagnostic Findings EKG as per my interpretation rate 95, NSR, LAD, LAFB, 1 AVB, no ischemia
[2020-10-16] MEDS ORDERED: ACETAMINOPHEN 325 MG TAB PO PRN ×2 (00:38→01:37)
[2020-10-16] MEDS ORDERED: CARBOHYDRATES FOR HYPOGLYCEMIA PO PRN (00:38)
[2020-10-16] MEDS ORDERED: GLUCOSE 40% GEL 15 GM TUBE PO PRN (00:38)
[2020-10-16] MEDS ORDERED: GLUCOSE 10 TABS/TUBE PO PRN (00:38)
[2020-10-16] MEDS ORDERED: PHARMACIST DISCHARGE MED REC CONSULT PRN (00:38)
[2020-10-16] MEDS ORDERED: GLUCAGON FOR INJ 1 MG VIAL SQ PRN (00:38)
[2020-10-16] MEDS ORDERED: DEXTROSE 50% 50 ML SYRINGE IV PRN (00:38)
[2020-10-16] MEDS ORDERED: SODIUM CHLORIDE 0.9% 1000ML 1,000 ML IV ONE (00:38)
[2020-10-16] MEDS ORDERED: PROMETHAZINE HCL 6.25 MG in SODIUM CHLORIDE 0.9% 50 ML IV PRN (00:38)
[2020-10-16] MEDS: INSULIN ASPART 100 UNITS/ML 3 ML PEN SC SCH ×5 (03:32→22:27)
[2020-10-16] MEDS: DOCUSATE SODIUM 100 MG CAP PO SCH ×2 (09:06→20:11)
[2020-10-16] MEDS: ASPIRIN 81 MG ECTAB PO SCH (09:06)
[2020-10-16] MEDS: FINASTERIDE 5 MG TAB PO SCH (09:06)
--- NOTE | 2020-10-16 09:37 | Electrocardiogram Report ---
Test Reason : Blood Pressure : / mmHG Vent. Rate : 087 BPM Atrial Rate : 087 BPM P-R Int : 220 ms QRS Dur : 088 ms QT Int : 390 ms P-R-T Axes : 026 -16 055 degrees QTc Int : 469 ms Sinus rhythm with 1st degree A-V block Change in atrial pacemaker mid tracing Otherwise normal ECG When compared with ECG of 28-JUN-1998 08:18, IA interval has increased Confirmed by Karlos Álvarez ([id number]) on 10/16/2020 9:37:21 AM Referred By: REFERRED SELF Confirmed By:Karlos Álvarez
[2020-10-16 09:44] LABS: Hematocrit (blood only) 38.1 % (42-52); Hemoglobin 13.4 g/dL (14.0-18.0); Mean Corpuscular Hemoglobin 32.7 pg (25-34); Mean Corpuscular Hgb Conc 35.2 g/dL (32-36); Mean Corpuscular Volume 92.9 fL (80-100); RDW Coefficient of Variation 15.7 % (11.5-14.5); RDW Standard Deviation 53.4 fL (36.4-46.3); White Blood Count 4.48 K/uL (4.8-10.8)
[2020-10-16 09:45] LABS: Mean Platelet Volume 11.2 fL (7.4-10.4); Platelet Count 59 K/uL (130-400)
[2020-10-16 10:04] LABS: BUN Creatinine Ratio 18.2 (10-20); Basophils # (auto) 0.04 K/uL (0-0.2); Basophils % (auto) 0.9 %; Calcium 8.5 mg/dl (8.5-10.1); Creatinine Clr Calc Pharmacy 61.8 ml/min; Eosinophils # (auto) 0.11 K/uL (0-0.5); Eosinophils % (auto) 2.5 %; Est GFR (African American) 82.3 ml/min; Immature Granulocytes # (auto) 0.01 K/uL (0.00-0.02); Immature Granulocytes % (auto) 0.2 %; Lymphocytes # (auto) 1.36 K/uL (1.2-3.4); Lymphocytes % (auto) 30.4 %; Monocytes % (auto) 8.9 %; Neutrophils # (auto) 2.56 K/uL (1.4-6.5); Neutrophils % (auto) 57.1 %; Potassium 4.3 mmol/L (3.5-5.1)
[2020-10-16] MEDS: OXYBUTYNIN CHLORIDE 5 MG TAB PO SCH (10:18)
[2020-10-16] MEDS ORDERED: OPTIRAY 320 125ml IV ONE (11:30)
--- NOTE | 2020-10-16 11:50 | Consultation Report ---
NEUROLOGIC CONSULTATION NOTE Distribution of this consult note to no specific provider. CHIEF COMPLAINT: Altered mental status HISTORY OF PRESENT ILLNESS: An 84-year-old male with a history of a cerebrovascular accident, hypertension, and diabetes, admitted to [facility] last evening for worsening aphasia and confusion. Patient recently was hospitalized twice in September, first hospitalization occurred from 10/02/2020 through 10/05/2020 where he developed aphasia and confusion at home. He was transferred to [facility] for stroke diagnosis. MRI of the brain showed an acute left MCA territory infarct. There was chronic white matter infarct in the left samuels radiata noted as well as volume loss and microvascular ischemic changes. He underwent an EEG as well during that admission, which was an abnormal awake and drowsy EEG due to mild generalized slowing. He underwent vessel imaging, which showed no high-grade intracranial arterial stenosis or occlusion within limitations. There was mild narrowing of the right cervical ICA origin due to atherosclerotic disease. No significant narrowing of the left cervical ICA. The vertebral arteries were not well visualized. He underwent a transesophageal echocardiogram as well, which showed an ejection fraction of 55-60%, mild aortic valve regurgitation. No cardiac source of embolism. 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 There was no AFib or atrial flutter on telemetry monitoring. Per documentation, he was discharged to home on aspirin and an outpatient Holter monitor for recommendations. He was then seen and admitted again from 10/07/2020 through 10/13/2020 for encephalopathy attributed to urinary tract infection and urinary retention. Urine culture showed Enterococcus. He was discharged on Levaquin course with an indwelling Alvares catheter to a rehab facility. On 10/13/2020, he was admitted to rehab facility in [place]. The patient's son visited him yesterday and it was noted to be more aphasic. Family requested further evaluation. The patient was transferred to [facility]. Upon admission, he underwent MRI imaging that confirmed bilateral cerebral hemisphere ischemic strokes. Neurology was consulted upon admission. ALLERGIES: No known drug allergies. HOME MEDICATIONS: Aspirin 81 mg, Lipitor 80 mg. DVT prophylaxis with Lovenox, furosemide 20 mg 4 times a week, insulin, lisinopril, metformin, terazosin. PAST MEDICAL HISTORY: Cerebrovascular accident, dementia, hypertension, BPH, insulin-dependent diabetes. PAST SURGICAL HISTORY: Reviewed. No recent surgical procedures. FAMILY HISTORY: Reviewed. No pertinent family history noted. SOCIAL HISTORY: He is a nonsmoker, currently residing in a personal care facility. He feels safe at home. He uses hearing aids. He is . No illicit drug use. No heavy alcohol use. REVIEW OF SYSTEMS: Positive for confusion, aphasia, abdominal pain, urinary retention. All other review of systems was negative except as noted above in the HPI. PHYSICAL EXAMINATION: VITAL SIGNS: Blood pressure 123/79, pulse is 78, respiratory rate 18, temperature 36.5 degrees Celsius, oxygen saturation 94% on room air. GENERAL: Physical exam, patient appears stated age. He is in no distress. Normal development. Face is normocephalic and atraumatic. Normal eyelids. Normal conjunctivae. NECK: Supple. RESPIRATORY: Normal respiratory effort. CARDIAC: Pulses are normal. ABDOMEN: Nondistended. SKIN: No skin rash. PSYCHIATRIC: Normal mood. NEUROLOGIC: He is awake, alert, oriented to person, disoriented to age.. His attention is decreased. Knowledge is poor. He is following simple commands. Speech is soft. Eyes are midline. Pupils are symmetric. Extraocular muscles are intact. Facial sensation intact. No facial asymmetry. Intact hearing.. Palate symmetric. Good shoulder shrug. Tongue is midline. Gait evaluation, deferred. No tremor, no ataxia with [id number] testing. Sensation is intact to light touch. Muscle tone is normal. Muscle exam shows no focal weakness in the upper or lower extremities. Reflexes show a negative Kami sign and no ankle clonus. DIAGNOSTIC TESTING AND LABORATORY VALUES: WBC 4.48, hemoglobin 13.4, platelet count 59. PTT is 31.9, PTT ratio is 1.2, sodium 138, potassium 4.3, chloride 107, BUN 18, creatinine 0.98, glucose is 141. Hemoglobin A1c is pending. Magnesium is 1.8, AST 38, ALT 45, alkaline phosphatase is 161. Ammonia is elevated at 38.7. TSH was normal. Urinalysis was clear yellow fluid, negative ketones, negative glucose, trace leukocyte esterase, 5-10 epithelial cells, no bacteria. COVID-19 was negative. MRI of the brain showed an acute to subacute lacunar infarct identified in the left posterior periventricular white matter as above. In addition, punctate focus of acute to subacute ischemia suspected in the right occipital cortex. Bilateral infarcts suggestive of embolic process. No additional foci of acute ischemia are identified. There is no hemorrhage, mass effect or enhancing lesion identified. Head CT noncontrast showed no hemorrhage, mass effect or evidence of acute territorial ischemia. Chest x-ray, no acute cardiopulmonary abnormality. ASSESSMENT AND PLAN: An 84-year-old male with a history of prior left middle cerebral artery ischemic stroke on aspirin and Crestor as well as insulin- dependent diabetes, admitted with worsening aphasia and noted to have an embolic appearing infarcts in the right GLOBAL PROFESSIONAL and left MCA GLOBAL PROFESSIONAL distribution. Appearance of the infarcts is concerning for a cardioembolic or embolic source of emboli. The patient recently underwent thorough evaluation of stroke at [facility] including transesophageal echocardiogram, which showed no cardiac source of embolism. There was a normal ejection fraction. Recent CTA head and neck imaging showed no high-grade stenosis, dissection or occlusion. Recommend permissive hypertension, treat for systolic blood pressure greater than 185 and diastolic blood pressure greater than 105. Would strongly avoid hypotension on an outpatient basis if possible. May need cardiac consultation for implantable cardiac cath technician called a LINQ as outpatient. Continue telemetry as inpatient. Recommend. Aspirin 81 mg daily. Patient has thrombocytopenia with presumed cirrhosis from chart review. Otherwise, continue high dose Crestor. Patient will require outpatient neurology in 8 weeks. Please call with any additional questions or concerns. Job ID: [id number] [facility]
--- NOTE | 2020-10-16 13:03 | CT Scan Report ---
CT angio neck with con, CT angio head w con CLINICAL HISTORY: 84 years-old Male with acute CVA. Acute strokelike symptoms COMPARISON STUDY: Head CT and brain MRI 10/15/2020 TECHNIQUE: Following the IV administration of 118 mL of Optiray, CT angiogram of the head and neck wa s performed from the aortic arch to the skull apex. Images are reviewed in the axial, sagittal, and c oronal planes. 3-D MIPS images are created and assessed. IV contrast was administered without complic ation. All measurements were calculated based on NASCET criteria. A dose lowering technique was util ized adhering to the principles of ALARA. CT DOSE: 1097.00 mGycm FINDINGS: Moderate atherosclerosis of the thoracic aorta. Patency of the dominant and imaged subclavian arterie s. Mild atherosclerosis of the common carotid arteries. There is moderate atherosclerotic plaque of t he right carotid bulb and proximal right ICA with 50% luminal narrowing of the proximal right ICA. Th ere is mild atherosclerotic plaque of the left carotid bulb which results in less than 50% stenosis. Atherosclerotic plaque of the cavernous and supraclinoid segments without high-grade stenosis. The mi ddle and right anterior cerebral arteries appear patent with mild multifocal low-grade stenosis of th e middle cerebral arteries. Hypoplastic left A1 segment. The vertebral arteries are codominant. Ather osclerotic plaque at the origin of the right vertebral artery without high-grade stenosis. The verteb ral and basilar arteries are patent. origin of the left posterior cerebral artery demonstrates moderate luminal narrowing on image 368. Multifocal stenoses of the right posterior cerebral artery w ith a short segment area of high-grade stenosis on image 351. No interval venous thrombosis identifie d. Lung apices are clear. No pneumothorax. 1.3 center left thyroid nodule. Mild polypoid mucosal thicken ing of the left maxillary sinus. Degenerative changes of the spine. Right mastoid effusion. Age-relat ed involutional changes with chronic microvascular ischemic disease. Chronic infarct of the left fron cora lobe samuels radiata. The subacute infarcts described on the recent brain MRI are not appreciated by CT. IMPRESSION: 1. Atherosclerotic plaque of the carotid bulbs and proximal cervical segments of the internal carotid arteries bilaterally, right greater than left resulting in approximately 50% stenosis of the proxima l right ICA. 2. Mild multifocal luminal narrowing of the middle cerebral arteries. 3. Short segment area of high-grade stenosis involves the P1 segment of the right posterior cerebral artery. 4. Additional findings as above. ACT 112: Negative or not required by law. The above report was generated using voice recognition software. It may contain grammatical, syntax o r spelling errors. Electronically signed by: Delvis Daugherty M.D. 10/16/2020 1:02 PM
[2020-10-16] MEDS: ATORVASTATIN 40 MG TAB PO SCH (20:11)
--- NOTE | 2020-10-16 23:49 | Hospitalist Progress Note ---
Date of Service October 16, 2020 Assessment & Plan (1) Expressive aphasia: Plan: Present on admission with worsening aphasia Mostly to have an embolic appearing infarcts in the right SIGN PAINTER and left MCA SIGN PAINTER distribution. infarcts is concerning for a cardioembolic or embolic source of emboli. CT head showed no hemorrhage, mass effect, or evidence of acute territorial ischemia MRI brain showed acute to subacute lacunar infarct identified in the left posterior periventricular white matter as above.An additional punctate focus of acute to subacute ischemia is suspect in the right occipital cortex. Bilateral infarcts suggest an embolic process. Neuro on board Case discussed with neuro that recommended to continue aspirin only due to the low platelet Will need to arrange for Cardiac consultation for implantable cardiac rehabilitation specialist called a LINQ as outpatient as per neuro Continue statin PT/OT eval Follow up with neuro in 8 weeks Hypertension Will allow permissive hypertension Not on any BP med Continue monitor BP Liver Cirrhosis No sign of fluid overload Stable Diabetes type 2 Hba1c 5.6 on 06/05 metformin on hold Continue novolog sliding scale while inpatient Thrombocytopenia No sign of bleeding Currently on Aspirin Continue monitor DVT px on SCD due to thrombocytopenia Code status FULL CODE Admission and Anticipated Discharge Date Admission Date: October 15, 2020 Subjective Pt was seen and examined for follow up of aphasia Lying in bed with no distress Pt said that he feels fine Denies any chest pain, palpitation, dizziness and SOB Physical Exam Physical Exam: General- No acute distress Head- atraumatic Eyes- PERRL, EOMI, ENT- oropharynx clear Neck- supple, no JVD Lungs- clear to auscultation Heart- regular rhythm; no murmur Abdomen- normal bowel sounds, soft, nontender Extremities- no calf tenderness Neuro- alert, oriented x 3; PERRL, EOMI; no facial palsy; no dysarthria Skin- warm & dry Results & Data Results & Data ([facility]) Vital Signs (Past 12 Hours) Vital Signs Temp Pulse Pulse Resp BP Pulse Ox 10/16/20 23:40 78 10/16/20 19:19 36.5 C 62 18 151/80 H 93 10/16/20 14:51 36.4 C L 80 19 105/63 95
[2020-10-17 07:44] LABS: Estimated Average Glucose 128 mg/dl; Hemoglobin A1C 6.1 % (4.5-5.6)
[2020-10-17] MEDS: ASPIRIN 81 MG ECTAB PO SCH (08:08)
[2020-10-17] MEDS: DOCUSATE SODIUM 100 MG CAP PO SCH ×2 (08:08→19:57)
[2020-10-17] MEDS: OXYBUTYNIN CHLORIDE 5 MG TAB PO SCH (08:09)
[2020-10-17] MEDS: FINASTERIDE 5 MG TAB PO SCH (08:09)
[2020-10-17] MEDS: INSULIN ASPART 100 UNITS/ML 3 ML PEN SC SCH ×4 (08:12→20:23)
[2020-10-17] MEDS: ATORVASTATIN 40 MG TAB PO SCH (19:57)
--- NOTE | 2020-10-17 22:48 | Hospitalist Progress Note ---
Date of Service October 17, 2020 Assessment & Plan (1) Expressive aphasia: Plan: Present on admission with worsening aphasia Mostly to have an embolic appearing infarcts in the right MOLD RELEASE WORKER and left MCA MOLD RELEASE WORKER distribution. infarcts is concerning for a cardioembolic or embolic source of emboli. CT head showed no hemorrhage, mass effect, or evidence of acute territorial ischemia MRI brain showed acute to subacute lacunar infarct identified in the left posterior periventricular white matter as above.An additional punctate focus of acute to subacute ischemia is suspect in the right occipital cortex. Bilateral infarcts suggest an embolic process. Neuro on board Case discussed with neuro that recommended to continue aspirin only due to the low platelet Will need to arrange for Cardiac consultation for implantable environmental monitoring technician called a LINQ as outpatient as per neuro Son was concerned about his dad only on aspirin 81mg because he had the recurrent symptoms while starting on the aspirin alone about 10 days ago Son understood the risk of bleeding with antiplatelet therapy Spoke to neuro recommended to increase the aspirin to 81mg BID Continue statin PT/OT eval Follow up with neuro in 8 weeks Waiting for placement to go back to [facility] Hypertension Will allow permissive hypertension Not on any BP med Continue monitor BP Liver Cirrhosis No sign of fluid overload Stable BPH Urinary retention Spoke to son that follow has been placed for the last 10 days or more Will do a voiding trial while in the hospital Cough Son said that he noticed his dad cough while eating Will discuss that with speech Continue aspiration precaution Diabetes type 2 Most recent Hba1c 6.1 on 10/15/20 metformin on hold Continue novolog sliding scale while inpatient Thrombocytopenia No sign of bleeding Currently on Aspirin Continue monitor DVT px on SCD due to thrombocytopenia Code status FULL CODE Disposition Waiting for placement to rehab Admission and Anticipated Discharge Date Admission Date: October 15, 2020 Subjective Pt was seen and examined for follow up of aphasia Lying in bed with no distress Pt said that he feels fine I spoke to his over the phone and his son at bedside in details and answered all their questions Son said that couple days ago he noticed his dad was coughing while eating food Denies any chest pain, palpitation, dizziness and SOB Physical Exam Physical Exam: General- No acute distress Head- atraumatic Eyes- PERRL, EOMI, ENT- oropharynx clear Neck- supple, no JVD Lungs- clear to auscultation Heart- regular rhythm; no murmur Abdomen- normal bowel sounds, soft, nontender Extremities- no calf tenderness Neuro- alert, oriented x 3; PERRL, EOMI; no facial palsy; no dysarthria Skin- warm & dry Results & Data Results & Data ([facility]) Vital Signs (Past 12 Hours) Vital Signs Temp Pulse Pulse Resp BP BP Pulse Ox 10/17/20 19:16 36.7 C 72 18 106/68 96 10/17/20 15:19 36.5 C 84 20 111/69 96 10/17/20 14:41 76 10/17/20 11:45 36.6 C 63 20 110/72 90
[2020-10-18] MEDS ORDERED: MICONAZOLE NITRATE POWDER 43 GM EXT PRN (00:43)
[2020-10-18] MEDS: INSULIN ASPART 100 UNITS/ML 3 ML PEN SC SCH ×2 (08:04→12:06)
[2020-10-18] MEDS: FINASTERIDE 5 MG TAB PO SCH (08:29)
[2020-10-18] MEDS: DOCUSATE SODIUM 100 MG CAP PO SCH (08:29)
[2020-10-18] MEDS: OXYBUTYNIN CHLORIDE 5 MG TAB PO SCH (08:29)
[2020-10-18] MEDS ORDERED: ASPIRIN 81 MG ECTAB PO SCH (09:00)
[2020-10-18 09:31] LABS: Hematocrit (blood only) 40.6 % (42-52); Hemoglobin 14.1 g/dL (14.0-18.0); Mean Corpuscular Hemoglobin 32.2 pg (25-34); Mean Corpuscular Hgb Conc 34.7 g/dL (32-36); Mean Corpuscular Volume 92.7 fL (80-100); RDW Coefficient of Variation 15.4 % (11.5-14.5); RDW Standard Deviation 52.1 fL (36.4-46.3); Red Blood Count 4.38 M/uL (4.7-6.1); White Blood Count 5.04 K/uL (4.8-10.8)
[2020-10-18 09:46] LABS: Platelet Count 60 K/uL (130-400)
--- NOTE | 2020-10-18 15:07 | Discharge Summary ---
Date of Service October 18, 2020 Admission HPI Per Admitting Provider History obtained from patient's family and records. Unable to obtain history from patient secondary to aphasia Medical history significant for recent embolic CVA, hypertension, DM2 on oral medications, cirrhosis as per records, BPH, chronic thrombocytopenia. 09/28-10/01 Patient admitted at [facility] for abdominal pain, possible gallstone problem as per son. Possible cirrhosis and portal hypertension on CAT scan. Patient discharged on Propanolol. 10/02-10/05 Patient developed aphasia and confusion at home. Transferred to [facility] from [facility] for stroke diagnosis. MRI brain showed acute left MCA territory infarct. Chronic white matter infarct in the left coronary radiata, chronic parenchymal volume loss and microvascular ischemic changes. Abnormal awake and drowsy EEG due to mild to moderate generalized slowing suggesting diffuse cervical dysfunction nonspecific to etiology. CTA head/neck No high-grade intracranial arterial vessels stenosis/occlusion within limitations. The great vessel origins are not included in the exam. Mild narrowing of right cervical ICA origin due to atherosclerotic disease. No significant narrowing of left cervical ICA. The origin of the vertebral arteries are difficult to visualize with both patent in appearance of the V2, V3, and V4 segment of vertebral arteries bilaterally. Multiple thyroid nodules. KOBI EF 55 to 60%, mild aortic valve regurgitation/mild MR/mild TR/mild TR. No cardiac source of embolus. 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 No A. fib or flutter on telemetry monitoring as per documentation. Patient discharged home on aspirin and outpatient Holter monitor recommendations. 10/07-10/13 Patient be admitted at [facility] for encephalopathy attributed to UTI secondary to BPH with urinary retention. Enterococcus on urine CS. Patient discharged on Levaquin course along with indwelling Velazquez catheter to rehab facility. Urology follow-up recommended after 1 week as per documentation for spontaneous voiding trial. 10/13 Patient admitted at [facility] rehab facility [facility]. Patient son (a hospital physical therapist) noted father to be more aphasic today. Family requested [facility] evaluation. Medical History as above Surgical History : Knee surgery, nerve biopsy, skin cancer surgery, shoulder surgery Family History : Dementia, lung cancer, prostate cancer, heart disease Personal/Social history : Non-smoker, occasional EtOH intake, retired laborer golf [employer], lives with Admission Exam Per Admitting Provider GENERAL: Comfortable, pleasant, aphasic, no respiratory distress SKIN: Normal color, warm HEENT: Clark palpebral conjunctivae, no ptosis, moist buccal mucosa NECK : Supple, no tenderness CHEST : CTA, no tenderness HEART : RRR, no obvious murmurs ABDOMEN: Some distention, nontender EXTREMITIES : No LE swelling/tenderness, no other conspicuous deformities noted NEUROLOGIC : Coherent, aphasic, no facial asymmetry, no other gross focality Principal Diagnosis Acute subacute CVA Hypertension BPH Urinary retention Diabetes type 2 Chronic Thrombocytopenia Discharge Exam General- No acute distress Head- atraumatic Eyes- PERRL, EOMI, ENT- oropharynx clear Neck- supple, no JVD Lungs- clear to auscultation Heart- regular rhythm; no murmur Abdomen- normal bowel sounds, soft, nontender Extremities- no calf tenderness Neuro- alert, oriented x 3; PERRL, EOMI; no facial palsy; no dysarthria Skin- warm & dry Discharge Data Allergies Allergy/AdvReac Type Severity Reaction Status Date / Time No Known Allergies Allergy Verified 10/15/20 18:08 Consultations 10/15/20 19:36 ED Decision to Admit Stat 10/16/20 00:38 Consult Neurology Routine Ordered Studies 10/15/20 17:33 CT head/brain wo con Stat 10/15/20 19:29 MR brain wo/w con Stat 10/16/20 11:19 CT angio head w con Routine CT angio neck with con Routine CT angio neck with con, CT angio head w con CLINICAL HISTORY: 84 years-old Male with acute CVA. Acute strokelike symptoms COMPARISON STUDY: Head CT and brain MRI 10/15/2020 TECHNIQUE: Following the IV administration of 118 mL of Optiray, CT angiogram of the head and neck was performed from the aortic arch to the skull apex. Images are reviewed in the axial, sagittal, and coronal planes. 3-D MIPS images are created and assessed. IV contrast was administered without complication. All measurements were calculated based on NASCET criteria. A dose lowering technique was utilized adhering to the principles of ALARA. CT DOSE: 1097.00 mGycm FINDINGS: Moderate atherosclerosis of the thoracic aorta. Patency of the dominant and imaged subclavian arteries. Mild atherosclerosis of the common carotid arteries. There is moderate atherosclerotic plaque of the right carotid bulb and proximal right ICA with 50% luminal narrowing of the proximal right ICA. There is mild atherosclerotic plaque of the left carotid bulb which results in less than 50% stenosis. Atherosclerotic plaque of the cavernous and supraclinoid segments without high-grade stenosis. The middle and right anterior cerebral arteries appear patent with mild multifocal low-grade stenosis of the middle cerebral arteries. Hypoplastic left A1 segment. The vertebral arteries are codominant. Atherosclerotic plaque at the origin of the right vertebral artery without high- grade stenosis. The vertebral and basilar arteries are patent. origin of the left posterior cerebral artery demonstrates moderate luminal narrowing on image 368. Multifocal stenoses of the right posterior cerebral artery with a short segment area of high-grade stenosis on image 351. No interval venous t hrombosis identified. Lung apices are clear. No pneumothorax. 1.3 center left thyroid nodule. Mild polypoid mucosal thickening of the left maxillary sinus. Degenerative changes of the spine. Right mastoid effusion. Age-related involutional changes with chronic microvascular ischemic disease. Chronic infarct of the left frontal lobe samuels radiata. The subacute infarcts described on the recent brain MRI are not appreciated by CT. IMPRESSION: 1. Atherosclerotic plaque of the carotid bulbs and proximal cervical segments of the internal carotid arteries bilaterally, right greater than left resulting in approximately 50% stenosis of the proximal right ICA. 2. Mild multifocal luminal narrowing of the middle cerebral arteries. 3. Short segment area of high-grade stenosis involves the P1 segment of the right posterior cerebral artery. 4. Additional findings as above. ACT 112: Negative or not required by law. The above report was generated using voice recognition software. It may contain grammatical, syntax or spelling errors. Electronically signed by: Delvis Daugherty M.D. 10/16/2020 1:02 PM Dictated: 10/16/20 1252Transcribed: 10/16/[address] angio neck with con, CT angio head w con CLINICAL HISTORY: 84 years-old Male with acute CVA. Acute strokelike symptoms COMPARISON STUDY: Head CT and brain MRI 10/15/2020 TECHNIQUE: Following the IV administration of 118 mL of Optiray, CT angiogram of the head and neck was performed from the aortic arch to the skull apex. Images are reviewed in the axial, sagittal, and coronal planes. 3-D MIPS images are created and assessed. IV contrast was administered without complication. All measurements were calculated based on NASCET criteria. A dose lowering technique was utilized adhering to the principles of ALARA. CT DOSE: 1097.00 mGycm FINDINGS: Moderate atherosclerosis of the thoracic aorta. Patency of the dominant and imaged subclavian arteries. Mild atherosclerosis of the common carotid arteries. There is moderate atherosclerotic plaque of the right carotid bulb and proximal right ICA with 50% luminal narrowing of the proximal right ICA. There is mild atherosclerotic plaque of the left carotid bulb which results in less than 50% stenosis. Atherosclerotic plaque of the cavernous and supraclinoid segments without high-grade stenosis. The middle and right anterior cerebral arteries appear patent with mild multifocal low-grade stenosis of the middle cerebral arteries. Hypoplastic left A1 segment. The vertebral arteries are codominant. Atherosclerotic plaque at the origin of the right vertebral artery without high- grade stenosis. The vertebral and basilar arteries are patent. origin of the left posterior cerebral artery demonstrates moderate luminal narrowing on image 368. Multifocal stenoses of the right posterior cerebral artery with a short segment area of high-grade stenosis on image 351. No interval venous thrombosis identified. Lung apices are clear. No pneumothorax. 1.3 center left thyroid nodule. Mild polypoid mucosal thickening of the left maxillary sinus. Degenerative changes of the spine. Right mastoid effusion. Age-related involutional changes with chronic microvascular ischemic disease. Chronic infarct of the left frontal lobe samuels radiata. The subacute infarcts described on the recent brain MRI are not appreciated by CT. IMPRESSION: 1. Atherosclerotic plaque of the carotid bulbs and proximal cervical segments of the internal carotid arteries bilaterally, right greater than left resulting in approximately 50% stenosis of the proximal right ICA. 2. Mild multifocal luminal narrowing of the middle cerebral arteries. 3. Short segment area of high-grade stenosis involves the P1 segment of the right posterior cerebral artery. 4. Additional findings as above. ACT 112: Negative or not required by law. The above report was generated using voice recognition software. It may contain grammatical, syntax or spelling errors. Electronically signed by: Delvis Daugherty M.D. 10/16/2020 1:02 PM Dictated: 10/16/20 1252Transcribed: 10/16/20 1252 MRI OF THE BRAIN COMBO CLINICAL HISTORY: Aphasia. Change in mental status. COMPARISON STUDY: CT of the brain dated 10/15/2020. TECHNIQUE: MRI of the brain was performed utilizing various T1 and T2-weighted sequences in the axial, sagittal, and coronal planes. Contrast-enhanced sequences were acquired following the administration of 8 cc of Gadavist. FINDINGS: Brain parenchyma: There is age-related involutional change noting moderate subcortical and periventricular microangiopathic disease. There is no hemorrhage or mass effect. Chronic lacunar infarcts are identified in the olivia and the left samuels radiata. There is a 1.4 cm focus of restricted diffusion identified in the left posterior periventricular white matter adjacent the occipital horn of the lateral ventricle. Additional punctate focus of restricted diffusion is suggested in the right occipital cortex on image #13. These are consistent with foci of acute to subacute ischemia. No additional foci of restricted diffusion are identified. No enhancing mass lesion is identified on the postcontrast images. No extra-axial fluid collection is seen. The cerebellar tonsils are normal in configuration. Ventricles, sulci, and cisterns: Prominent secondary to involutional change. Pituitary and sella: Partially empty sella is incidentally noted. Intracranial vasculature: Normal flow voids are maintained at the skull base. Orbits: The bony orbits are grossly intact. Orbital contents are normal in appearance. Sinuses and mastoids: A 1.6 cm retention cyst is noted in the left maxillary antrum. The remaining paranasal sinuses are clear. There is a right mastoid effusion. Calvarium: Unremarkable. Cervical cord: Partially visualized cervical spinal cord is normal in morphology and signal intensity. IMPRESSION: 1. There is an acute to subacute lacunar infarct identified in the left posterior periventricular white matter as above. 2. An additional punctate focus of acute to subacute ischemia is suspect in the right occipital cortex. Bilateral infarcts suggest an embolic process. 3. No additional foci of acute ischemia are identified. 4. There is no hemorrhage, mass effect, or enhancing lesion identified. ACT 112: Negative or not required by law. Electronically signed by: Artis Lugo M.D. 10/15/2020 9:56 PM Dictated: 10/15/202148Transcribed: 10/15/202148 CT SCAN OF THE BRAIN WITHOUT IV CONTRAST CLINICAL HISTORY: Change in mental status. COMPARISON STUDY: No priors. TECHNIQUE: Unenhanced axial CT scan of the brain is performed from the vertex to the skull base. A dose lowering technique was utilized adhering to the principles of ALARA. CT DOSE: 614.27 mGy.cm FINDINGS: Brain parenchyma: There are age-related involutional changes noting mild to moderate subcortical and periventricular microangiopathic change. There is no hemorrhage, mass effect, or evidence of acute territorial ischemia by CT criteria. There is a chronic lacunar infarct in the left samuels radiata. Hilliard- white matter differentiation is preserved. No extra-axial fluid collection is seen. Ventricles, sulci, cisterns: Prominent secondary to involutional change. Intracranial vasculature: There is atherosclerotic calcification of the cavernous carotid and vertebral arteries. Calvarium: Unremarkable. Sinuses and mastoids: There is a 1.5 cm retention cyst in the left maxillary antrum. The remaining paranasal sinuses are clear. There is a small right mastoid effusion. The left mastoid air cells are well pneumatized. Orbits: The bony orbits are grossly intact. IMPRESSION: There is no hemorrhage, mass effect, or evidence of acute territorial ischemia by CT criteria. ACT 112: Negative or not required by law. Electronically signed by: Artis Lugo M.D. 10/15/2020 7:15 PM Dictated: 10/15/201911Transcribed: 10/15/201911 SINGLE VIEW CHEST CLINICAL HISTORY: Generalized weakness. FINDINGS: An AP, portable, upright chest radiograph is obtained. No prior studies are available for comparison at the time of dictation. The examination is degraded by portable technique and patient rotation. The heart is top normal for projection noting atherosclerotic calcification of the thoracic aorta. The pulmonary vasculature is noncongested. There is bibasilar scarring/atelectasis. No airspace consolidation or large pleural effusion is identified. No pneumothorax is seen. The skeletal structures are osteopenic. The bony thorax is grossly intact. Degenerative changes noted in the shoulders and thoracic spine. There is widening at the right AC joint. IMPRESSION: No acute cardiopulmonary abnormality. ACT 112: Negative or not required by law. Electronically signed by: Artis Lugo M.D. 10/15/2020 6:42 PM Dictated: 10/15/201839Transcribed: 10/15/201839 Hospital Course (1) Expressive aphasia: Present on admission with worsening aphasia Mostly due to embolic appearing infarcts in the right GRAPHIC ENGINEER and left MCA GRAPHIC ENGINEER distribution. infarcts is concerning for a cardioembolic or embolic source of emboli. CT head showed no hemorrhage, mass effect, or evidence of acute territorial ischemia MRI brain showed acute to subacute lacunar infarct identified in the left posterior periventricular white matter as above.An additional punctate focus of acute to subacute ischemia is suspect in the right occipital cortex. Bilateral infarcts suggest an embolic process. Neuro on board Case discussed with neuro that recommended to continue aspirin only due to the low platelet Will need to arrange for Cardiac consultation for implantable quality assurance monitor final called a LINQ as outpatient as per neuro Son was concerned about his dad only on aspirin 81mg because he had the recurrent symptoms while starting on the aspirin alone about 10 days ago Son understood the risk of bleeding with antiplatelet therapy Spoke to neuro recommended to increase the aspirin to 81mg BID Continue statin Will need outpatient hypercoagulopathy work up Continue PT/OT eval Follow up with neuro in 8 weeks Plan to go back to [facility] Hypertension Will allow permissive hypertension Not on any BP med Continue monitor BP BPH Urinary retention Spoke to son that follow has been placed for the last 10 days or more Will do a voiding trial while in the hospital Velazquez removed-Denies any urinary retention Outpatient follow with neuro if symptom reoccur Cough Son said that he noticed his dad cough while eating Spoke to speech therapy and no sign of aspiration during bedside evaluation Continue aspiration precaution Diabetes type 2 Most recent Hba1c 6.1 on 10/15/20 metformin on hold Continue novolog sliding scale while inpatient Chronic Thrombocytopenia No sign of bleeding Currently on Aspirin BID Continue monitor DVT px on SCD due to thrombocytopenia Code status FULL CODE Disposition Will discharge to rehab today Spoke to son Scott over the phone and provided with update Total Time Total Time Spent Total Time Spent (In Minutes): 35 minutes Discharge Plan Discharge Items Patient Disposition: Transfer Inpatient Rehab Fac Reason For Visit: CVA Discharge Diagnosis: Acute subacute CVA Hypertension BPH Urinary retention Diabetes type 2 Chronic Thrombocytopenia Activity: Resume your previous activity Non-emergency contact: Primary Care Provider and Neurologist Call non-emergency contact if: you have any medication questions Follow-up/Referrals: Houston Mcwilliams M.D. [Primary Care Provider] - Diet: Carb Consistent or DM2 Addtl Attending Provider Instructions: Follow up with your primary care provider once discharge from rehab Follow up with [facility] ( Dr. Rowell or her colleagues) in 6 to 8 weeks Continue physical and occupational therapy Fall precaution Continue monitor for any abnormal bleeding such as (blood in the urine, stools,..) while on aspirin twice a day due to your low platelet Your physician will order hypocoagulable markers for you as an outpatient You will need to get arrange for the Holter monitor to monitor for any arrhythmia If you develop any urinary retention, ok to place a velazquez and follow up with urology Continue to hold Lisinopril and Terazosin to allow permissive hypertension, then if Blood pressure start to elevate (above systolic 140-150) we can resume terazosin, Lisinopril at a lower dose and then titrate up. Pending Studies at Discharge: No Stand-Alone Forms: My [facility] Skilled Items Patient informed of condition?: Yes DNR: No Discharge Level of Care: Acute rehab Communicable Disease: No Discharge Prognosis: Stable Lines: None Urinary Catheter: No Medications and DC Order Prescriptions: Continued atorvastatin 80 mg Tablet 80 mg PO HS RF: 0 metformin 1,000 mg Tablet 1,000 mg PO BIDM RF: 0 docusate sodium 100 mg Capsule 100 mg PO BID RF: 0 oxybutynin chloride 5 mg Tablet 5 mg PO DAILY RF: 0 finasteride 5 mg Tablet 5 mg PO DAILY RF: 0 furosemide 20 mg Tablet 20 mg PO 4XWK RF: 0 Humulin R Regular U-100 Insuln 100 unit/mL Solution 1 sliding scale dose SUBCUT ACHS RF: 0 Changed aspirin 81 mg Tablet,Chewable 81 mg PO BID Qty: 60 RF: 0 Discontinued lisinopril 10 mg Tablet 10 mg PO DAILY RF: 0 terazosin 10 mg Capsule 10 mg PO HS RF: 0 enoxaparin 30 mg/0.3 mL Syringe 30 mg SUBCUT Q12H RF: 0 levofloxacin 500 mg Tablet 500 mg PO DAILY RF: 0 Discharge Orders: Discharge Order (Routine); Ordered 10/18/20 Ordered By: Shira Solano Admission Data Admit Date/Time: 10/15/20 22:52 Attending Provider: Shira Solano Admit Provider: Raoul Yeung Primary Care Provider: Houston Mcwilliams Other Providers: Raoul Yeung ; Sydnee Briceño ; Maverick Gonsalves ; Sydnee Rowell ; Prateek Gupta ; Kaylah Amos ; [facility] Other Interventions: Discharge Summary Assessment (RN) Last Done: 10/18/20 16:07
[2020-10-18] MEDS ORDERED: STROKE PATIENT DISCHARGE STA (15:50)
== END 2020-10-18 16:15 | DRG 66 ==
LOC: EDSEX → ED 17:08 → SUATTDRO 22:52 → 2W 22:52
DX: F03.90 Unspecified dementia, unspecified severity, without behavioral disturbance, psychotic disturbance, mood disturbance, and anxiety; I63.431 Cerebral infarction due to embolism of right posterior cerebral artery; I69.320 Aphasia following cerebral infarction; R33.9 Retention of urine, unspecified; I63.412 Cerebral infarction due to embolism of left middle cerebral artery; Z80.42 Family history of malignant neoplasm of prostate; D69.6 Thrombocytopenia, unspecified; I10 Essential (primary) hypertension; Z79.4 Long term (current) use of insulin; K74.60 Unspecified cirrhosis of liver; Z79.82 Long term (current) use of aspirin; I95.9 Hypotension, unspecified; R47.01 Aphasia; Z80.1 Family history of malignant neoplasm of trachea, bronchus and lung; N40.1 Benign prostatic hyperplasia with lower urinary tract symptoms